=== PATIENT | male | born 1960 | race Two or more races ===

== ENCOUNTER 2016-12-06 15:56 | Emergency (ER) | payer MEDICAID, OTHER ==
[~2016-12-06] VITALS: Ht 172.7 cm; Wt 93.0 kg
[2016-12-06 20:11] VITALS: BP 136/92
== END 2016-12-06 20:51 | disposition home or self-care (01) ==
LOC: ER 16:05
DX: J40 Bronchitis, not specified as acute or chronic (principal)
CPT/HCPCS: 71020

== ENCOUNTER 2018-07-31 09:18 | Emergency (ER) | payer MEDICAID ==
[~2018-07-31] VITALS: Ht 170.2 cm; Wt 83.9 kg
[2018-07-31 09:30] VITALS: BP 145/82
[2018-07-31] MEDS ORDERED: LIDOCAINE 1% (LOCAL ANESTH.) PF 5ml SDV ID ONE (09:45)
[2018-07-31] MEDS ORDERED: TETANUS-DIPTH-ACEL PERTUSSIS 0.5ML SYRG IM ONE (09:45)
[2018-07-31] MEDS ORDERED: BACITRACIN TOP OINT 1 UD PKG TOP ONE (09:45)
== END 2018-07-31 10:39 | disposition home or self-care (01) ==
LOC: ER 09:18
DX: S81.011A Laceration without foreign body, right knee, initial encounter (principal); W25.XXXA Contact with sharp glass, initial encounter; Y93.89 Activity, other specified; Y92.89 Other specified places as the place of occurrence of the external cause; Y99.8 Other external cause status
CPT/HCPCS: 12002; 90471; 90715

== ENCOUNTER 2018-10-27 13:01 | Emergency (ER) | payer MEDICAID ==
[~2018-10-27] VITALS: Ht 172.7 cm; Wt 86.2 kg
[2018-10-27 13:25] VITALS: BP 130/94
[2018-10-27] MEDS ORDERED: diphenhdrAMINE HCL 25 MG CAP PO ONE (14:30)
[2018-10-27] MEDS ORDERED: KETOROLAC TROMETH 60MG/2ML VIAL IM ONE (14:30)
== END 2018-10-27 15:15 | disposition home or self-care (01) ==
LOC: ER 13:01
DX: R51 Headache (principal); M54.5 Low back pain
CPT/HCPCS: 70450; 96372; 99284; J1885

== ENCOUNTER 2021-06-09 11:34 | Emergency (ER) | payer MEDICAID ==
[~2021-06-09] VITALS: Ht 172.7 cm; Wt 92.5 kg
[2021-06-09 12:57] VITALS: BP 154/82
== END 2021-06-09 14:14 | disposition home or self-care (01) ==
LOC: ER 11:34
DX: R05 Cough (principal)
CPT/HCPCS: 71046

== ENCOUNTER 2021-10-21 13:04 | Emergency (ER) | payer MEDICAID ==
[~2021-10-21] VITALS: Ht 172.7 cm; Wt 93.0 kg
[2021-10-21 14:56] VITALS: BP 165/97
[2021-10-21] MEDS ORDERED: cefTRIAXone SOD 1,000 MG VL IM ONE (15:00)
== END 2021-10-21 15:23 | disposition home or self-care (01) ==
LOC: ER 13:04
DX: J01.90 Acute sinusitis, unspecified (principal); J20.9 Acute bronchitis, unspecified
CPT/HCPCS: 71046; 96372; 99283; J0696

== ENCOUNTER 2022-02-18 10:51 | Emergency (ER) | payer MEDICAID ==
[~2022-02-18] VITALS: Ht 172.7 cm; Wt 96.6 kg
[2022-02-18 11:35] VITALS: BP 166/85
[2022-02-18] MEDS ORDERED: KETOROLAC TROMETH 60MG/2ML VIAL IM ONE (13:00)
[2022-02-18] MEDS ORDERED: IBUP800T27 PO (13:18)
[2022-02-18] MEDS ORDERED: PRED20TA2 PO (13:18)
== END 2022-02-18 13:31 | disposition home or self-care (01) ==
LOC: ER 10:51
DX: M51.36 Other intervertebral disc degeneration, lumbar region (principal); Z79.1 Long term (current) use of non-steroidal anti-inflammatories (NSAID); Z79.899 Other long term (current) drug therapy
CPT/HCPCS: 72100; 96372; 99283; J1885

== ENCOUNTER 2022-10-05 08:14 | Emergency (ER) | payer MEDICAID ==
[~2022-10-05] VITALS: Ht 172.7 cm; Wt 97.3 kg
[~2022-10-05 08:14] MED LIST: IBUP800T27 PO; PRED20TA2 PO
[2022-10-05] MEDS ORDERED: KETOROLAC TROMETH 30 MG/ML 1ML VIAL IM ONE (11:30)
[2022-10-05 12:24] VITALS: BP 135/89
[2022-10-05] MEDS ORDERED: PRED20TA2 PO (14:10)
[2022-10-05] MEDS ORDERED: LIDO5DIS21 TOP (14:10)
== END 2022-10-05 14:31 | disposition home or self-care (01) ==
LOC: ER 08:14
DX: S39.012A Strain of muscle, fascia and tendon of lower back, initial encounter (principal); Z79.1 Long term (current) use of non-steroidal anti-inflammatories (NSAID); Z79.899 Other long term (current) drug therapy; X58.XXXA Exposure to other specified factors, initial encounter; Y93.89 Activity, other specified; Y92.89 Other specified places as the place of occurrence of the external cause; Y99.8 Other external cause status
CPT/HCPCS: 72100; 96372; 99283; J1885

== ENCOUNTER → 2022-11-09 | Outpatient (CLI) | payer MEDICAID ==
[~2022-11-09] MED LIST changes: +LIDO5DIS21 TOP
[2022-11-09 08:52] LABS: Cholesterol 221 mg/dL (< 200); HDL Cholesterol 59 mg/dL (40-59); LDL Cholesterol 155 mg/dL (< 100); Triglycerides 106 mg/dL (< 150)
== END | disposition home or self-care (01) ==
LOC: LAB 07:45
PROVIDERS: ATTEND Internal Medicine
DX: R97.20 Elevated prostate specific antigen [PSA] (principal); E78.5 Hyperlipidemia, unspecified
CPT/HCPCS: 36415; 80061; 83036; 84153; 85652

== ENCOUNTER → 2024-08-23 | Outpatient (CLI) | payer MEDICAID ==
[~2024-08-23] MED LIST changes: +ACET500T58 PO; +IBUP-1455 PO; +IBUP-1456 PO; -IBUP800T27 PO; +ZOFR4T PO
[2024-08-23 10:32] LABS: Basophils # (auto) 0.1 10 ^3/uL (0-0.2); Basophils % (auto) 1.8 % (0.0-2.0); Eosinophils # (auto) 0.3 10 ^3/uL (0-0.8); Eosinophils % (auto) 6.2 % (0.0-7.0); Hematocrit 47.4 % (41.0-53.0); Hemoglobin 16.6 g/dL (13.5-17.5); Lymphocytes # (auto) 1.8 10 ^3/uL (0.4-5.4); Lymphocytes % (auto) 32.7 % (10.0-50.0); Mean Corpuscular Hemoglobin 32.6 pg (28.0-32.0); Mean Corpuscular Hgb Conc. 35.1 g/dL (32.0-36.0); Mean Corpuscular Volume 93.1 fL (80.0-100.0); Monocytes # (auto) 0.4 10 ^3/uL (0-1.3); Monocytes % (auto) 7.6 % (0.0-12.0); Neutrophils # (auto) 2.9 10 ^3/uL (1.6-8.6); Neutrophils % (auto) 51.7 % (37.0-80.0); Nucleated Red Blood Cells % 0.1 %; Platelet Count (auto) 164 10^3/uL (140-450); Red Blood Cells 5.09 10^6/uL (4.5-5.90); Red Cell Distribution Width 13.6 % (11.8-14.3); White Blood Cell 5.6 10^3/uL (4.4-10.8)
[2024-08-23 11:01] LABS: Alanine Aminotransferase 36 U/L (7-40); Albumin 4.4 g/dL (3.2-4.8); Alkaline Phosphatase 47 U/L (46-116); Anion Gap 8 (5-15); Aspartate Aminotransferase 22 U/L (13-40); BUN/Creatinine Ratio 16.7 (10.0-20.0); Bilirubin, Total 0.7 mg/dL (0.2-1.0); Blood Urea Nitrogen 17 mg/dL (9-23); Calcium 9.5 mg/dL (8.7-10.4); Carbon Dioxide 24 mmol/L (20-31); Chloride 109 mmol/L (98-107); Cholesterol 203 mg/dL (< 200); Glucose 112 mg/dL (74-106); HDL Cholesterol 51 mg/dL (40-59); LDL Cholesterol 143 mg/dL (< 100); Potassium 4.2 mmol/L (3.5-5.1); Sodium 141 mmol/L (136-145); Total Protein 6.6 g/dL (5.7-8.2); Triglycerides 109 mg/dL (< 150)
[2024-08-23 12:50] LABS: Creatinine, Urine 125.56 mg/dL (30.0-125.0)
[2024-08-23 12:52] LABS: Micro Albumin < 3.0 mg/L (<30.0)
== END | disposition home or self-care (01) ==
LOC: LAB 10:10
PROVIDERS: ATTEND Internal Medicine
DX: E78.5 Hyperlipidemia, unspecified (principal); R97.20 Elevated prostate specific antigen [PSA]; R73.03 Prediabetes
CPT/HCPCS: 36415; 80053; 80061; 82043; 82570; 83036; 84153; 84443; 85025

== ENCOUNTER → 2024-09-03 | Outpatient (CLI) | payer MEDICAID | END | disposition home or self-care (01) | LOC: LAB 08:47 | PROVIDERS: ATTEND Internal Medicine | DX: Z12.11 Encounter for screening for malignant neoplasm of colon (principal); R73.03 Prediabetes; E78.5 Hyperlipidemia, unspecified; R97.20 Elevated prostate specific antigen [PSA] | CPT/HCPCS: 82270 ==

== ENCOUNTER → 2024-09-27 | Outpatient (CLI) | payer MEDICAID | END | disposition home or self-care (01) | LOC: XYW 13:44 | PROVIDERS: ATTEND Internal Medicine | DX: R06.09 Other forms of dyspnea (principal); I50.9 Heart failure, unspecified | CPT/HCPCS: 93306 ==

== ENCOUNTER → 2025-01-17 | Outpatient (CLI) | payer MEDICAID | END | disposition home or self-care (01) | LOC: LAB 10:23 | PROVIDERS: ATTEND Internal Medicine | DX: R06.02 Shortness of breath (principal) | CPT/HCPCS: 36415; 85379 ==

== ENCOUNTER 2025-08-03 23:04 | Emergency (ER) | payer MEDICAID ==
[~2025-08-03] VITALS: Ht 172.7 cm; Wt 98.4 kg
[2025-08-03 23:06] VITALS: BP 170/87; PULSE 58; RESP 18; TEMP 98.4; O2SAT 96
[2025-08-04] MEDS ORDERED: MOXI0.5D9 LEFTEYE (02:23)
--- NOTE | 2025-08-04 02:24 | ED.PDOC ---
Eye-HPI HPI Comments BILATERAL EYE IRRITATION, REDNESS, WATERING STATES WORKING WITH CONCRET[employer] TODAY. DENIES VISION CHANGES, INJURY, FEVER OR CHILLS Chief Complaint: Eye Problem Time Seen by MD: 23:07 Primary Care Provider: Bijal Glez Notes: Nurses Notes, Medications, Allergies Allergies: Coded Allergies: NO KNOWN ALLERGIES (Unverified , 12/06/16) Home Meds Active Scripts Ondansetron Odt 4MG Tab (ZOFRAN PO) 4 Mg Tb, 4 MG PO Q6HP PRN, #20 TAB ODT TAB-DISSOLVE IN MOUTH, THEN SWALLOW Prov:JORGE SANDRA PAC 06/17/23 Ibuprofen Micronized (Ibuprofen) 800 Mg Tab, 800 MG PO Q8HP PRN, #30 TAB Prov:JORGE SANDRA PAC 06/17/23 Acetaminophen (Acetaminophen) 500 Mg Tab, 500 MG PO Q4HP PRN, #30 TAB Prov:JORGE SANDRA PAC 06/17/23 Lidocaine (LIDODERM 5% TOPICAL PATCH) 1 Patch Ph, 1 PATCH TOP DAILY PRN, #30 PATCH 1 Refill Prov:TIANNA VARGASP 10/05/22 Prednisone (Prednisone) 20 Mg Tab, 20 MG PO DAILY for 5 Days, #5 MG 0 Refills Prov:TIANNA VARGAS [facility] 10/05/22 Prednisone (Prednisone) 20 Mg Tab, 40 MG PO DAILY, #20 MG Prov:BHAKTI SANTANA 02/18/22 Ibuprofen (Ibuprofen) 800 Mg Tab, 800 MG PO Q8HP PRN for 10 Days, #30 TAB Prov:BHAKTI SANTANA 02/18/22 Information Source: Patient Mode of Arrival: Ambulatory Past Medical History PAST MEDICAL HISTORY: Denies Surgical History: Denies all surgeries Family History Family History: Reviewed,noncontributory to illness Social History Smoker: Non-Smoker Alcohol: Denies ETOH Use Drugs: Denies Drug Use Lives In: Home All Other Systems: Reviewed and Negative (SEE HPI) Physical Exam General Appearance: No Apparent Distress, Normal HEENT: Pharynx Normal, Other (BY LATERAL EYE SCLERAE HYPEREMIA WITH DARK GRAYISH DISCHARGE NO NOTED FOREIGN BODIES) Neck: Full Range of Motion, Non-Tender, Normal, Normal Inspection Respiratory: Chest Non-Tender, Lungs Clear, No Accessory Muscle Use, No Respiratory Distress, Normal Breath Sounds Cardiovascular: No Edema, No JVD, No Murmur, No Gallop, Normal Peripheral Pulses, Regular Rate/Rhythm Breast Exam: Deferred Gastrointestinal: No Organomegaly, Non Tender, No Pulsatile Mass, Normal Bowel Sounds, Soft Genitalia: Deferred Pelvic: Deferred Rectal: Deferred Extremities: No calf tenderness, Normal capillary refill, Normal inspection, Normal range of motion, Non-tender, No pedal edema Musculoskeletal : Apperance: Normal Neurologic: Alert, home worker II-XII nml as Tested, No Motor Deficits, Normal Affect, Normal Mood, No Sensory Deficits Cerebellar Function: Normal Reflexes: Normal Skin: Dry, Normal Color, Warm Lymphatic: No Adenopathy Was a procedure done? Was a procedure done?: Yes Sedation Sedation?: No Informed consent obtained: Yes Other Procedure Procedure BILATERAL EYE FLUSHED Indication CEMENT IN EYE Anesthetic NONE Prep NONE Success FLUSHED WITH NORMAL SALINE PATIENT TOLERATED WELL SUCCESSFUL NO NOTICED OBVIOUS FOREIGN BODIES. Informed consent obtained: Yes Risks, benefits, and alternati: Yes EENT DIFF Eye: Corneal Ulceration, Foreign Body-Conjunctiva, Foreign Body-Corneal, Foreign Body-Intraocular, Foreign Body-Lid, Globe Rupture X-Ray, Labs, Meds, VS Vital Signs Date Time Temp Pulse Resp B/P (MAP) Pulse Ox O2 Delivery O2 Flow Rate FiO2 08/03/25 23:06 98.4 58 18 170/87 96 98.4 X-Ray, Labs, Meds, VS Comment SEE PROCEDURE NOTE Time of 1ST Reevaluation: 23:07 Reevaluation 1ST: Unchanged Time of 2ND Reevaluation: 02:22 Reevaluation 2ND: Improved Patient Education/Counseling: Diagnosis, Treatment, Prognosis, Need For Follow Up Family Education/Counseling: Diagnosis, Treatment, Prognosis, Need For Follow Up SEPSIS Sepsis Screen Date sepsis recognized/suspect: Aug 03, 2025 Time Sepsis recognized/suspect: 2305 Recent Procedure: No On Antibiotic Therapy: No Respiratory Rate >20: No Heart Rate >90: No Temp<36 C (96.8 F) or >38.3 C: No SBP <90 or MAP <65 mmHG: No New Acute Mental Status Change: No Is the patient on CPAP, BIPAP,: No Vital Signs Date Time Temp Pulse Resp B/P (MAP) Pulse Ox O2 Delivery O2 Flow Rate FiO2 08/03/25 23:06 98.4 58 18 170/87 96 98.4 Departure 1 Departure Time of Disposition: 02:22 Impression: Primary Impression: Foreign body sensation, bilateral eyes Disposition: 01 HOME / SELF CARE / HOMELESS Condition: Stable e-Prescriptions Moxifloxacin Hydrochloride (Moxifloxacin) 0.5 % Pepe 1 DROP LEFTEYE TID for 7 Days, #5 ML Prov: ROSEY PÉREZ 08/04/25 Discharged With: Friend Critical Care Note Critical Care Time?: No Stability Stability form required: ROSEY Fernandes Aug 04, 2025 02:24
== END 2025-08-04 02:27 | disposition home or self-care (01) ==
LOC: ER 23:04
DX: H57.8A3 Foreign body sensation, bilateral eyes (principal); Z79.899 Other long term (current) drug therapy

== ENCOUNTER 2025-09-30 08:54 | Outpatient (CLI) | payer MEDICAID ==
[2025-09-30 09:49] LABS: Alanine Aminotransferase 38 U/L (7-40); Albumin 4.3 g/dL (3.2-4.8); Alkaline Phosphatase 54 U/L (46-116); Anion Gap 11 (5-15); BUN/Creatinine Ratio 10.8 (10.0-20.0); Blood Urea Nitrogen 12 mg/dL (9-23); Calcium 9.1 mg/dL (8.7-10.4); Carbon Dioxide 26 mmol/L (20-31); Chloride 105 mmol/L (98-107); Cholesterol 206 mg/dL (< 200); Glucose 116 mg/dL (74-106); HDL Cholesterol 51 mg/dL (40-59); Potassium 3.9 mmol/L (3.5-5.1); Sodium 142 mmol/L (136-145); Total Protein 6.9 g/dL (5.7-8.2); Triglycerides 130 mg/dL (< 150)
[2025-09-30 09:50] LABS: Bilirubin, Total 1.7 mg/dL (0.2-1.0)
== END 2025-09-30 17:00 | disposition home or self-care (01) ==
LOC: LAB 08:54
PROVIDERS: ATTEND Internal Medicine
DX: E78.5 Hyperlipidemia, unspecified (principal); R73.03 Prediabetes
CPT/HCPCS: 36415; 80053; 80061; 83036

== ENCOUNTER 2025-10-01 10:27 | Outpatient (CLI) | payer MEDICAID ==
[2025-10-01 11:11] LABS: Hematocrit 47.8 % (41.0-53.0); Hemoglobin 16.3 g/dL (13.5-17.5); Mean Corpuscular Hemoglobin 31.4 pg (28.0-32.0); Mean Corpuscular Volume 91.9 fL (80.0-100.0); Nucleated Red Blood Cells % 0.2 %
== END 2025-10-01 17:00 | disposition home or self-care (01) ==
LOC: LAB 10:27
PROVIDERS: ATTEND Internal Medicine
DX: K62.5 Hemorrhage of anus and rectum (principal); Z12.5 Encounter for screening for malignant neoplasm of prostate; Z12.11 Encounter for screening for malignant neoplasm of colon
CPT/HCPCS: 36415; 84153; 85025